=== PATIENT | male | born 1975 | race Caucasian/White ===

== ENCOUNTER 2017-08-26 18:12 | Emergency (ER) | payer OTHER ==
[~2017-08-26] VITALS: Ht 182.9 cm; Wt 86.5 kg
[~2017-08-26 18:12] MED LIST: ACIDTAB4 PO; CLIN150 PO; DICL500 PO; NOVONP2 SQ; NOVORP2 SQ; PERC5TAB12 PO
[2017-08-26 18:19] VITALS: BP 128/90; PULSE 102; RESP 18; TEMP 99; O2SAT 96
--- NOTE | 2017-08-26 18:42 | PD ---
HPI Chief Complaint: Skin Problem Time Seen by Provider: 18:38 Travel History International Travel<30 days: No Contact w/Intl Traveler<30days: No Traveled to known affect area: No History of Present Illness HPI 42-year-old male with history of type 1 diabetes presents emergency department for evaluation of the wound sustained to the distal left second digit yesterday by a catfish hi going through the digit. Patient reports that it was red and swollen. He went to urgent care and was started on Levaquin. He took one dose this morning but throughout the day he has noticed an increase in pain and red streaking up to his mid forearm on the dorsum aspect of it. He denies any fever or chills. States the pain has gotten worse however the swelling and redness has decreased. He denies any limitation range of motion except that it is painful to flex the digit. Pain is a constant, throbbing, moderate pain. He has no other symptoms to report. PFSH Past Medical History Arthritis: No Heart Rhythm Problems: Yes (PALPITAIONS) Cancer: No Cardiovascular Problems: No High Cholesterol: No Chemotherapy: No Chest Pain: No Congestive Heart Failure: No Cerebrovascular Accident: No Diabetes: Yes (TYPE 1 WITH INSULIN PUMP) Patient Takes Glucophage: No Diminished Hearing: No Endocrine: Yes (hypothyroid) Gastrointestinal Disorders: No Genitourinary: No Headaches: No Hypertension: Yes Immune Disorder: No Implanted Vascular Access Dvce: Yes Musculoskeletal: Yes Neurologic: No Psychiatric: No Reproductive: No Respiratory: No Immunizations Current: No Migraines: No Radiation Therapy: No Seizures: Yes (DM related) Thyroid Disease: Yes Triglycerides - High: Yes Past Surgical History Abdominal Surgery: Yes Arteriovenous Shunt: No Cardiac Surgery: No Ear Surgery: Yes Endocrine Surgery: Yes Eye Surgery: Yes Genitourinary Surgery: Yes Gynecologic Surgery: Yes Insulin Pump: Yes Joint Replacement: No Neurologic Surgery: No Oral Surgery: Yes Thoracic Surgery: Yes Tonsillectomy: Yes Other Surgery: Yes (TONSILECTOMY, vasectomy, I&D Left wrist) Social History Alcohol Use: Yes (OCC) Tobacco Use: No Substance Use: No Allergies-Medications (Allergen,Severity, Reaction): Coded Allergies: *MDRO Multi-Drug Resistant Organism (Unverified Adverse Reaction, Unknown , 12/19/13) MRSA 2013 Reported Meds & Prescriptions Reported Meds & Active Scripts Active Doxycycline Hyclate 100 Mg Cap 100 Mg PO BID Acidophilus (Lactobacillus) 1 Tab Tab 1 Tab PO TID Cleocin (Clindamycin HCl) 150 Mg Cap 300 Mg PO Q8 Novolin N (Insulin Isophane (Human)) 100 Units/Ml Inj 24 Units SQ BID@08,20 30 Days Percocet 5-325 mg (Oxycodone/Acetaminophen) 1 Tab Tab 1 Tab PO Q4H PRN Reported Dicloxacillin Sodium 500 mg (Dicloxacillin Sodium) 500 Mg Cap 500 Mg PO Q6 Novolin R (Insulin Human Regular) 100 Units/Ml Inj 0 SQ DIRECTED Novolin N (Insulin Human NPH) 100 Units/Ml Inj 12 Units SQ Q12 Review of Systems Except as stated in HPI: all other systems reviewed are Neg Physical Exam Narrative GENERAL: Well-nourished male patient, ambulatory and in no acute distress. SKIN: Focused skin assessment warm/dry. Mild erythema encompassing the volar surface of the right second digit from the very distal tip approximately to about the DIP joint. There is red streaking on the dorsum of the hand to about mid forearm. It is blanchable. There is no fluctuance. There is a obvious wound on both lateral aspects of the distal right second digit where the hi went through. HEAD: Atraumatic. Normocephalic. EYES: Pupils equal and round. No scleral icterus. No injection or drainage. ENT: No nasal bleeding or discharge. Mucous membranes pink and moist. NECK: Trachea midline. No JVD. CARDIOVASCULAR: Regular rate and rhythm. No murmur appreciated. RESPIRATORY: No accessory muscle use. Clear to auscultation. Breath sounds equal bilaterally. GASTROINTESTINAL: Abdomen soft, non-tender, nondistended. Hepatic and splenic margins not palpable. MUSCULOSKELETAL: No obvious deformities. No clubbing. No cyanosis. Patient can fully flex and extend the affected digit. Cap refills within normal limits. Distal pulses are palpable. NEUROLOGICAL: Awake and alert. No obvious cranial nerve deficits. Motor grossly within normal limits. Normal speech. PSYCHIATRIC: Appropriate mood and affect; insight and judgment normal. Data Data Last Documented VS Vital Signs Date Time Temp Pulse Resp B/P (MAP) Pulse Ox O2 Delivery O2 Flow Rate FiO2 08/26/17 18:19 99.0 102 18 128/90 (103) 96 Orders Orders Iv Access Insert/Monitor (08/26/17 18:38) Complete Blood Count With Diff (08/26/17 18:38) Basic Metabolic Panel (Bmp) (08/26/17 18:38) Vancomycin Inj (Vancomycin Inj) (08/26/17 18:45) Blood Culture (08/26/17 18:38) Ketorolac Inj (Toradol Inj) (08/26/17 19:15) Finger ([id number]) (08/26/17 ) Morphine Inj (Morphine Inj) (08/26/17 19:45) Ed Poc Ultrasound (08/26/17 ) Sodium Chlor 0.9% 1000 Ml Inj (Ns 1000 M (08/26/17 20:15) Doxycycline (Vibramycin) (08/26/17 20:15) Ed Discharge Order (08/26/17 20:10) Labs Laboratory Tests Test 08/26/17 18:50 White Blood Count 8.5 TH/MM3 Red Blood Count 4.64 MIL/MM3 Hemoglobin 16.0 GM/DL Hematocrit 46.8 % Mean Corpuscular Volume 100.8 FL Mean Corpuscular Hemoglobin 34.4 PG Mean Corpuscular Hemoglobin Concent 34.1 % Red Cell Distribution Width 13.4 % Platelet Count 189 TH/MM3 Mean Platelet Volume 9.9 FL Neutrophils (%) (Auto) 67.4 % Lymphocytes (%) (Auto) 22.2 % Monocytes (%) (Auto) 8.6 % Eosinophils (%) (Auto) 1.4 % Basophils (%) (Auto) 0.4 % Neutrophils # (Auto) 5.7 TH/MM3 Lymphocytes # (Auto) 1.9 TH/MM3 Monocytes # (Auto) 0.7 TH/MM3 Eosinophils # (Auto) 0.1 TH/MM3 Basophils # (Auto) 0.0 TH/MM3 CBC Comment DIFF FINAL Differential Comment Blood Urea Nitrogen 21 MG/DL Creatinine 1.39 MG/DL Random Glucose 506 MG/DL Calcium Level 8.3 MG/DL Sodium Level 134 MEQ/L Potassium Level 4.2 MEQ/L Chloride Level 100 MEQ/L Carbon Dioxide Level 19.8 MEQ/L Anion Gap 14 MEQ/L Estimat Glomerular Filtration Rate 56 ML/MIN MDM Medical Decision Making Medical Screen Exam Complete: Yes Emergency Medical Condition: Yes Medical Record Reviewed: Yes Differential Diagnosis Cellulitis versus lymphangitis versus puncture wound versus foreign body Narrative Course 42-year-old male presents to emergency department for evaluation of his right second digit where he was punctured by a catfish hi yesterday with associated red streaking to his midforearm. Patient appears well. His vital signs are stable. There is slight streaking from the right second digit to the mid forearm on the dorsum aspect of the affected extremity. X-ray and ultrasound of the digit reveal no foreign body. Patient is given IV vancomycin as well as p.o. doxycycline. Laboratory Tests Test 08/26/17 18:50 White Blood Count 8.5 TH/MM3 Red Blood Count 4.64 MIL/MM3 Hemoglobin 16.0 GM/DL Hematocrit 46.8 % Mean Corpuscular Volume 100.8 FL Mean Corpuscular Hemoglobin 34.4 PG Mean Corpuscular Hemoglobin Concent 34.1 % Red Cell Distribution Width 13.4 % Platelet Count 189 TH/MM3 Mean Platelet Volume 9.9 FL Neutrophils (%) (Auto) 67.4 % Lymphocytes (%) (Auto) 22.2 % Monocytes (%) (Auto) 8.6 % Eosinophils (%) (Auto) 1.4 % Basophils (%) (Auto) 0.4 % Neutrophils # (Auto) 5.7 TH/MM3 Lymphocytes # (Auto) 1.9 TH/MM3 Monocytes # (Auto) 0.7 TH/MM3 Eosinophils # (Auto) 0.1 TH/MM3 Basophils # (Auto) 0.0 TH/MM3 CBC Comment DIFF FINAL Differential Comment Blood Urea Nitrogen 21 MG/DL Creatinine 1.39 MG/DL Random Glucose 506 MG/DL Calcium Level 8.3 MG/DL Sodium Level 134 MEQ/L Potassium Level 4.2 MEQ/L Chloride Level 100 MEQ/L Carbon Dioxide Level 19.8 MEQ/L Anion Gap 14 MEQ/L Estimat Glomerular Filtration Rate 56 ML/MIN Patient is hyperglycemic, however he forgot to bolus himself prior to carb loading prior to arrival. Patient is given another normal saline bolus and boluses himself with his insulin pump. I discussed the patient my attending physician who is also assessed the patient. Patient will be discharged home to follow-up with primary care provider. We will add doxycycline to his regimen. He agrees to return immediately with acute worsening symptoms. Diagnosis Primary Impression: Struck by other marine mammals, initial encounter Additional Impressions: Cellulitis of finger of left hand Hyperglycemia Referrals: Primary Care Physician Patient Instructions: General Instructions, Marine Animal Bite or Sting (ED) Additional Instructions: Elevate the finger to reduce pain and swelling Continue levaquin; start doxycycline tomorrow and take along with levaquin. Take both until they are all gone Follow up with your primary care provider Return to ED with acute worsening of symptoms Med/Other Pt SpecificInfo: Prescription(s) given Scripts Doxycycline Hyclate (Doxycycline Hyclate) 100 Mg Cap 100 MG PO BID for Infection, #20 CAP 0 Refills Prov: Kendy Dumont 08/26/17 Disposition: 01 DISCHARGE HOME Condition: Stable Kendy Dumont Aug 26, 2017 18:42
[2017-08-26] MEDS ORDERED: VANCOMYCIN INJ 1,000 MG in SODIUM CHLOR 0.9% 250 ML INJ 250 ML IV ONE (18:45)
[2017-08-26 19:02] LABS: AUTOMATED NEUTROPHIL # 5.7 TH/MM3 (1.8-7.7); BASOPHIL % 0.4 % (0.0-2.0); EOSINOPHIL # 0.1 TH/MM3 (0-0.4); EOSINOPHIL % 1.4 % (0.0-4.0); HEMATOCRIT 46.8 % (39.0-51.0); LYMPH % 22.2 % (9.0-44.0); LYMPHOCYTE # 1.9 TH/MM3 (1.0-4.8); MEAN CELL VOLUME 100.8 FL (80.0-100.0); MEAN CORPUSCULAR HEMOGLOBIN 34.4 PG (27.0-34.0); MEAN CORPUSCULAR HGB CONC 34.1 % (32.0-36.0); MEAN PLATELET VOLUME 9.9 FL (7.0-11.0); MONO % 8.6 % (0.0-8.0); MONOCYTE # 0.7 TH/MM3 (0-0.9); NEUT % 67.4 % (16.0-70.0); PLATELET COUNT 189 TH/MM3 (150-450); RED BLOOD COUNT 4.64 MIL/MM3 (4.50-5.90); RED CELL DISTRIBUTION WIDTH 13.4 % (11.6-17.2); WHITE BLOOD COUNT 8.5 TH/MM3 (4.0-11.0)
[2017-08-26] MEDS ORDERED: KETOROLAC TROMETHAMINE 30 MG/ML (IVP) VIAL IV PUSH ONE (19:15)
[2017-08-26 19:43] LABS: BICARBONATE 19.8 MEQ/L (21.0-32.0); CALCIUM 8.3 MG/DL (8.5-10.1); CREATININE 1.39 MG/DL (0.60-1.30)
[2017-08-26] MEDS ORDERED: MORPHINE SULFATE 4 MG/ML INJ IV PUSH ONE (19:45)
--- NOTE | 2017-08-26 20:05 | RADRPT ---
EXAM DATE: 08/26/2017 7:40 PM EDT AGE/SEX: 42 years / Male INDICATIONS: Foreign body. Pierced in the finger by a cat fish. CLINICAL DATA: This is the patient's initial encounter. Patient reports that signs and symptoms have been present for 2 days and indicates a pain score of 3/10. MEDICAL/SURGICAL HISTORY: None. None. COMPARISON: No prior exams available for comparison. FINDINGS: Bony structures are intact and in normal alignment. Joints are intact without dislocation or signifi cant arthropathy. Osseous density is normal. Soft tissues are unremarkable. No radiopaque foreign bodies seen. CONCLUSION: No acute findings. No radiopaque foreign body. Electronically signed by: Linden Peraza MD 08/26/2017 8:04 PM EDT
[2017-08-26] MEDS ORDERED: DOXY100C PO (20:13)
--- NOTE | 2017-08-26 20:13 | PD ---
Data Data Last Documented VS Vital Signs Date Time Temp Pulse Resp B/P (MAP) Pulse Ox O2 Delivery O2 Flow Rate FiO2 08/26/17 18:19 99.0 102 18 128/90 (103) 96 Orders Orders Iv Access Insert/Monitor (08/26/17 18:38) Complete Blood Count With Diff (08/26/17 18:38) Basic Metabolic Panel (Bmp) (08/26/17 18:38) Vancomycin Inj (Vancomycin Inj) (08/26/17 18:45) Blood Culture (08/26/17 18:38) Ketorolac Inj (Toradol Inj) (08/26/17 19:15) Finger ([id number]) (08/26/17 ) Morphine Inj (Morphine Inj) (08/26/17 19:45) Ed Poc Ultrasound (08/26/17 ) Sodium Chlor 0.9% 1000 Ml Inj (Ns 1000 M (08/26/17 20:15) Doxycycline (Vibramycin) (08/26/17 20:15) Labs Laboratory Tests Test 08/26/17 18:50 White Blood Count 8.5 TH/MM3 Red Blood Count 4.64 MIL/MM3 Hemoglobin 16.0 GM/DL Hematocrit 46.8 % Mean Corpuscular Volume 100.8 FL Mean Corpuscular Hemoglobin 34.4 PG Mean Corpuscular Hemoglobin Concent 34.1 % Red Cell Distribution Width 13.4 % Platelet Count 189 TH/MM3 Mean Platelet Volume 9.9 FL Neutrophils (%) (Auto) 67.4 % Lymphocytes (%) (Auto) 22.2 % Monocytes (%) (Auto) 8.6 % Eosinophils (%) (Auto) 1.4 % Basophils (%) (Auto) 0.4 % Neutrophils # (Auto) 5.7 TH/MM3 Lymphocytes # (Auto) 1.9 TH/MM3 Monocytes # (Auto) 0.7 TH/MM3 Eosinophils # (Auto) 0.1 TH/MM3 Basophils # (Auto) 0.0 TH/MM3 CBC Comment DIFF FINAL Differential Comment Blood Urea Nitrogen 21 MG/DL Creatinine 1.39 MG/DL Random Glucose 506 MG/DL Calcium Level 8.3 MG/DL Sodium Level 134 MEQ/L Potassium Level 4.2 MEQ/L Chloride Level 100 MEQ/L Carbon Dioxide Level 19.8 MEQ/L Anion Gap 14 MEQ/L Estimat Glomerular Filtration Rate 56 ML/MIN MDM Supervised Visit with GINO: Yes Narrative Course The history, exam, and medical decision-making in the associated mid-level provider note were completed with my assistance. I reviewed and agree with the findings presented. I attest that I had a [id number] encounter with the patient on the same day, and personally performed and documented my assessment and findings in the medical record. *My assessment and Findings: Is a 42-year-old man presents to the emergency department complaining of pain redness swelling from catfish hi penetrating injury to his finger. States he came out initially. He thinks the whole thing came out. He was seen in urgent care to start him on Levaquin. Despite starting Levaquin receiving 2 doses he has had decreased redness of the finger but no streaking up his hand. Otherwise looks well. He is type I diabetic. X-ray and [id number] ultrasound revealed no evidence of retained foreign body. Will add doxycycline. Close monitoring return for any worsening symptoms. Procedures Procedure Narrative [id number] ultrasound: Focused soft tissue ultrasound performed with the aid of a water bath was performed on the finger of interest to evaluate for evidence of foreign body. No evidence of foreign body was identified. Eduin Shay MD Aug 26, 2017 20:13
[2017-08-26] MEDS ORDERED: SODIUM CHLOR 0.9% 1000 ML INJ 1,000 ML IV ONE (20:15)
[2017-08-26] MEDS ORDERED: DOXYCYCLINE HYCLATE 100 MG CAP PO ONE (20:15)
== END 2017-08-26 21:05 | disposition home or self-care (01) ==
LOC: NEPE 18:12
DX: L03.012 Cellulitis of left finger (principal); E10.65 Type 1 diabetes mellitus with hyperglycemia; R56.9 Unspecified convulsions; I10 Essential (primary) hypertension; Z79.4 Long term (current) use of insulin
CPT/HCPCS: 73140; 80048; 85025; 87040; 96365; 96366; 96375; 99285; J1885; J2270; J3370; J7030; J7050